=== PATIENT | female | born 1975 | race Caucasian/White ===

== ENCOUNTER 2019-06-27 09:31 | Emergency (ER) | payer SELFPAY ==
[2019-06-27 09:39] VITALS: BP 209/108; PULSE 87; RESP 16; TEMP 36.6; O2SAT 96; BMI 44.8
--- NOTE | 2019-06-27 09:44 | ED_ITS ---
Entered by Amy Hilton, acting as scribe for Rene Lehman DO Jun 27, 2019 09:31 HPI - Extremity Problem General: Chief complaint: Extremity Injury, Lower Stated complaint: right knee pain Time Seen by Provider: 06/27/19 09:36 Source: patient Mode of arrival: ambulatory Limitations: no limitations History of Present Illness: HPI Narrative: 44 yo female presents with R knee pain. pt states this occurred yesterday. pt was walking and stepped on uneven concrete, twisting ankle and causing pain. pt denies any other symptoms at this time. MD Complaint: extremity pain Onset (ago): day(s) (yesterday) Pain Consistency: constant Location: right, lower extremity and knee Quality: constant Radiation: none Relieving factors: nothing Exacerbating factors: weight bearing, walking and exertion Associated symptoms: Reports no associated symptoms; Deny chest pain or fever(s) Review of Systems General: Reports: 10 or more systems reviewed and unremarkable except in HPI and below Const: Denies: fever, chills, night sweats or diaphoresis Eyes: Denies: change in vision, eye redness or decreased night vision ENMT: Denies: throat pain Card: Denies: chest pain Resp: Denies: shortness of breath Musc: Reports: extremity pain and extremity swelling (R knee) PFSH ED PFSH: Social History Smoking and tobacco status: current every day smoker Physical Exam Const: COMMON NORMALS: no apparent distress, average body habitus, oriented x3, no limitations, healthy appearing, alert and well nourished HENMT: COMMON NORMALS: normocephalic, head/scalp atraumatic, hearing grossly normal bilaterally, external ears normal, EAC's normal, TM's normal bilaterally, external nose normal, nasal mucous membranes and turbinates normal, moist oral mucous membranes, oropharynx normal, dentition normal and gingiva normal HEAD & SCALP: normocephalic and atraumatic NOSE: external nose normal and nasal mucous membranes and turbinates normal EXTERNAL EAR: Yes external ears normal EXTERNAL AUDITORY CANAL: EAC's normal TYMPANIC MEMBRANE: TM's normal bilaterally Eye: COMMON NORMALS: PERRL, EOMs intact bilaterally, conjunctivae normal, no scleral icterus, no papilledema, normal visual stahl by confrontation and fundi normal bilaterally CONJUNCTIVA: Yes conjunctivae normal PUPIL: Yes PERRL DIRECT OPHTHALMOSCOPY: Yes no papilledema and Yes fundi normal bilaterally Neck/C-Spine: COMMON NORMALS: full ROM, no lymphadenopathy, supple, no meningeal signs, no JVD, thyroid normal and no carotid bruits THYROID: thyroid normal Chest: COMMONS NORMALS: inspection of chest normal and palpation of chest normal Resp: COMMON NORMALS: normal respiratory effort, no retractions, no use of accessory muscles, clear to auscultation bilaterally and percussion normal AUSCULTATION: clear to auscultation bilaterally PERCUSSION: percussion normal Cardio: COMMON NORMALS: no JVD, regular rate, regular rhythm, S1 normal heart sound, S2 normal heart sound, no gallops, no clicks, no murmurs, no rub and peripheral pulses 2+ throughout RATE: regular rate RHYTHM: regular rhythm HEART SOUNDS: S1 normal and S2 normal PERIPHERAL PULSES: pulses 2+ throughout GI: COMMON NORMALS: normal to inspection, nondistended, normoactive bowel sounds, soft to palpation, non-tender, no hepatosplenomegaly, no masses and no bruits PALPATION: Yes soft and Yes no hepatosplenomegaly : COMMON NORMALS: Yes no CVA tenderness and Yes external appearance normal BLADDER/KIDNEY EXAM: Yes no CVA tenderness Back/Pelvis: COMMON NORMALS: no CVA tenderness, thoracic and lumbar spine normal to inspection, no thoracic nor lumbar tenderness, thoraco-lumbar ROM normal and straight leg raise negative bilaterally Extremity: COMMON NORMALS: normal to inspection, full ROM, normal capillary refill, no joint enlargement and no pedal edema Neuro: COMMON NORMALS: oriented x3 SENSORIUM/ORIENTATION: Yes alert MENINGEAL SIGNS: Yes no meningeal signs Skin: COMMON NORMALS: no rashes or lesions noted, no wounds, skin turgor normal, no jaundice, no petechiae and no mottling GENERAL SKIN EXAM: no rashes or lesions noted and turgor normal Course Vital Signs: Vital signs: Vital Signs Temperature 97.8 F 06/27/19 09:39 Pulse Rate 87 06/27/19 09:39 Respiratory Rate 16 06/27/19 09:39 Blood Pressure 209/108 06/27/19 09:39 Pulse Oximetry 96 06/27/19 09:39 Coding Level of Care Code ED Second Cutter for Chg Fwd Exam Comprehensive The documentation recorded by the Yobani cox Bridget Annette, accurately reflects the service I personally performed and the decisions made by me, Rene Lehman, Jun 27, 2019 09:31
--- NOTE | 2019-06-27 09:51 | XR_ITS ---
WS: [id number] XR knee RT 3V* [id number] REASON FOR EXAM: injury FINDINGS: Decreased bone density in the knee is noted. The meniscal spaces are normal. No definite fractures are seen. The patella tibial space was normal. The patella femoral articulation normal. XR/XR knee RT 3V* [id number] IMPRESSION: Decreased bone density in the knee. No definite fractures or other dyscrasias noted.
[2019-06-27 11:07] VITALS: BP 154/87; PULSE 96; RESP 18; O2SAT 96
== END 2019-06-27 11:08 | disposition home or self-care (01) ==
PROVIDERS: Emergency Provider Family Medicine
DX: M25.561 Pain in right knee (principal); M25.461 Effusion, right knee; F17.200 Nicotine dependence, unspecified, uncomplicated
CPT/HCPCS: 29530; 73562; 99281; 99283; L1830

== ENCOUNTER 2020-01-16 14:07 | Emergency (ER) | payer SELFPAY ==
[2020-01-16 14:23] VITALS: BP 221/105; PULSE 81; RESP 16; TEMP 36.7; O2SAT 98; BMI 45.4
[2020-01-16 14:27] VITALS: PULSE 89; RESP 16; O2SAT 96
--- NOTE | 2020-01-16 15:31 | W.ED.WOUNDLC ---
HPI - Wound/Laceration General: Chief Complaint: Wound/Laceration Stated Complaint: r arm lac Time Seen by Provider: 01/16/20 14:43 History of Present Illness: HPI narrative: She was cutting brush today with a chainsaw when she looked away and cut her left wrist with a chainsaw she has a laceration to the left underside of the wrist Onset (ago): minute(s) Location: other Extremity Location: Left: wrist Place: home Patient tetanus UTD: No Context: accidental Associated symptoms: Reports no associated symptoms; Denies chills, fever(s), nausea or vomiting Treatments prior to arrival: bandage Review of Systems Const: Denies: fever(s), chills or body aches Eyes: Denies: change in vision or blurry vision ENMT: Denies: throat pain or nasal congestion Card: Denies: chest pain or dyspnea on exertion Resp: Denies: dyspnea, productive cough or non-productive cough GI: Denies: abdominal pain, nausea or vomiting Musc: Denies: extremity pain Skin/Breast: Reports: other (Laceration left wrist); Denies: rash Neuro: Denies: headache(s) Psych: Denies: anxiety or depression Devin/Lymph: Denies: easy bruising PFSH ED PFSH: Social History Smoking and tobacco status: current every day smoker Female Reproductive History: Date of last menstrual period: 12/26/19 Physical Exam Const: COMMON NORMALS: no acute distress, average body habitus and patient oriented x3 HENMT: COMMON NORMALS: normocephalic HEAD & SCALP: normal to inspection and normocephalic FACE & SINUS: normal facial exam Eye: COMMON NORMALS: conjunctivae normal GENERAL EYE: appearance normal, both eyes and all related structures CONJUNCTIVA: Yes conjunctivae normal Neck/C-Spine: COMMON NORMALS: no JVD Chest: COMMONS NORMALS: normal inspection of the chest Resp: COMMON NORMALS: normal respiratory effort and clear to auscultation bilaterally AUSCULTATION: clear to auscultation bilaterally Cardio: COMMON NORMALS: no JVD, regular rate and regular rhythm RATE: regular rate RHYTHM: regular rhythm GI: COMMON NORMALS: Normal to inspection, nondistended, normoactive bowel sounds present Extremity: COMMON NORMALS: normal to inspection and full ROM Neuro: COMMON NORMALS: patient oriented x3 Skin: NARRATIVE SKIN EXAM: Patient jagged laceration left wrist extremity 7 cm long and wide at various points due to jaggedness of the wound Procedures Laceration Laceration 1: Site: upper extremity Side (If applicable): left Size (cm): 7 Description: linear, irregular and clean Depth: simple, single layer Local Anesthetic: lidocaine 1% Amount of anesthesia used (mL): 5 Pre-repair: wound explored, irrigated extensively and deep structures intact Skin layer closed with: nylon Size (cm): 4-0 Number of sutures: 10 Technique: simple, interrupted Course Vital Signs: Vital signs: Vital Signs Temperature 98.0 F 01/16/20 14:23 Pulse Rate 79 01/16/20 15:46 Respiratory Rate 14 01/16/20 15:46 Blood Pressure 193/89 01/16/20 15:46 Pulse Oximetry 96 01/16/20 15:46 Discharge Plan Discharge Patient Disposition: Home Clinical Impression: Laceration Condition: Stable Prescriptions: New Keflex 500 mg capsule 500 mg PO TID 7 Days Qty: 21 RF: 0 No Action Tylenol-Codeine #3 300-30 mg tablet 1 tab PO Q4H PRN (Reason: pain) Qty: 14 RF: 0 Discharge Orders: Discharge Order (Routine); Ordered 01/16/20 Ordered By: Ponce Brown Discharge Diet: Usual diet Discharge Activity: Increase activity as tolerated Patient Instructions: Laceration (ED) Activity Restrictions/Additional Instructions: Follow-up with medical provider as directed. Take medications as prescribed. Return to the ER or your medical provider if condition worsens. Please read and understand discharge instructions. If any questions ask please. 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
[2020-01-16] MEDS: tetanus-dipt-pertussis 0.5 mL SDV IM (15:39)
[2020-01-16] MEDS: cephALEXin 500 mg Capsule PO (15:39)
[2020-01-16] MEDS: lidocaine 1% INJ 20 mL 5 ML INTRADERMA (15:44)
[2020-01-16 15:46] VITALS: BP 193/89; PULSE 79; RESP 14; O2SAT 96
== END 2020-01-16 15:47 | disposition home or self-care (01) ==
PROVIDERS: Emergency Provider Nurse Practitioner Family
DX: S61.512A Laceration without foreign body of left wrist, initial encounter (principal); W29.3XXA Contact with powered garden and outdoor hand tools and machinery, initial encounter; F17.210 Nicotine dependence, cigarettes, uncomplicated; Z23 Encounter for immunization
CPT/HCPCS: 12002; 12345; 90471; 90715; 96372; 99281; 99282

== ENCOUNTER 2025-02-27 14:25 | Outpatient (CLI) | payer SELFPAY ==
--- NOTE | 2025-02-27 15:30 | US_ITS ---
WS: [id number] ULTRASOUND SOFT TISSUES posterior skull. HISTORY: mass on back of head COMPARISON: None available. TECHNIQUE: 2-D and color Doppler imaging is submitted. No obvious soft tissue abnormality is identified over the posterior skull in the area directed by the patient. If there is continued concern for a palpable area CT evaluation may be a better choice. There is some soft tissue thickening which is probably related to the patient's hair. US/US soft tissue head neck [id number] IMPRESSION: No scalp abnormality identified by ultrasound. If there is continued concern co nsider CT evaluation.
== END 2025-02-27 14:26 | disposition home or self-care (01) ==
LOC: RAD 14:27
DX: R22.0 Localized swelling, mass and lump, head (principal)
CPT/HCPCS: 76536